=== PATIENT | female | born 1970 | race Caucasian/White ===

== ENCOUNTER 2017-06-03 15:04 | Outpatient (CLI) ==
--- NOTE | 2017-06-03 15:29 | DI ---
EXAM: Chest two view, frontal and lateral views. HISTORY: Bronchitis. COMPARISON: None available. FINDINGS: The heart size is normal. There is no pulmonary vascular congestion. The lungs are clear save for calcified granulomatous changes. No pleural effusion or pneumothorax is seen. No acute os seous abnormality identified. Clips seen in the right upper abdomen. IMPRESSION: No acute cardiopulmonary process.
[2017-06-03 15:37] LABS: FLU INTERNAL QC INTERNAL QC VALID; MOLECULAR FLU A NEGATIVE BY NAAT (NEGATIVE); MOLECULAR FLU B NEGATIVE BY NAAT (NEGATIVE)
== END 2017-06-03 15:05 | disposition home or self-care (01) ==
LOC: LAB 15:04
PROVIDERS: ATTEND Nurse Practitioner Family
DX: J40 Bronchitis, not specified as acute or chronic (principal); R52 Pain, unspecified
CPT/HCPCS: 87502; 87651; 87880